=== PATIENT | male | born 1950 | race Caucasian/White ===

== ENCOUNTER 2023-07-05 20:28 | Emergency (ER) | payer MEDICARE, OTHER, SELFPAY ==
[2023-07-05] VITALS (9 sets, daily range): BP systolic 83–119; BP diastolic 57–84
--- NOTE | 2023-07-05 21:00 | ED.GENMED ---
History of Present Illness
General
Chief Complaint: Blood Pressure Problem
Time Seen by Provider: 07/05/23 20:55
Travel History
Have you had any contact with someone who has COVID-19?: No
Do you have any symptoms of coronavirus? Fever > 100 degrees, chills, cough, shortness of breath, sore throat, loss of taste or smell, muscle aches, or headache?: No
History of Present Illness
History of Present Illness:
HPI: Patient presents due to concerns for low blood pressure readings. He states he was at Dr. Kline's office 3 days ago and was found to have blood pressures in the 80s at that time. He states that Dr. Kline did not make any adjustments to his
medications. His med list currently includes Toprol 200 mg daily as well as lisinopril daily. He is also on diuretic. Earlier in the week, he did have a sensation of 'bright vision'. He did have multiple blood pressure readings at home and at
urgent care that were all low.
EXAM:
GENERAL: Well appearing in no distress, mildly hypotensive but has excellent mental status
HEENT: Moist oral mucosa
CARDIOVASCULAR: No murmurs, normal heart rate, irregular rhythm, No chest wall tenderness
PULMONARY: No respiratory distress, breath sounds are clear and equal
ABDOMEN: Soft with no peritoneal signs, no tenderness
NEUROLOGIC: Excellent strength all extremities, no coordination deficits
PSYCHIATRIC: Appropriate mental status, normal insight and judgement
EXTREMITIES: Nontender, no edema, moves all extremities equally
SKIN: No rash, no lesions
TIME OF INITIAL ENCOUNTER: 9 PM
NUMBER AND COMPLEXITY OF PROBLEMS ADDRESSED AT THE ENCOUNTER
� Chronic conditions affecting care: High blood pressure, A-fib, hyperlipidemia, NC, heart failure
� Acute Exacerbation and/or Progression of Chronic Illness: This is an acute problem
� Differential Diagnosis includes: Medication related low blood pressure, ACS very unlikely given the lack of chest pain, heart failure, worsening aortic stenosis
AMOUNT AND/OR COMPLEXITY OF DATA TO BE REVIEWED AND ANALYZED
� I performed an independent evaluation of and my interpretation is:
EKG: A-fib, ventricular rate 78, normal axis, occasional demand V-paced
CT:
X-rays:
Laboratory Studies: Creatinine 2.0�this is acute. CBC unremarkable, mild transaminase elevation.
Other:
� Review of other/old records: The patient was admitted here in 2021 with syncope and at that time a pacemaker was placed, the patient has persistently history of ablations and has had PCI for CAD.
� Clinical information was obtained by an independent historian: Spoke to friend at bedside
� Prescriptions/Medications Considered but not given:
� Further testing considered but not performed:
RISK OF COMPLICATIONS AND/OR MORBIDITY OR MORTALITY OF PATIENT MANAGEMENT
� Social determinants of health affecting care: Lives at home
� Discussion with other providers: I discussed case with Dr. Romeo who recommends decreasing lisinopril
� Escalation of care including admission/observation vs risk of discharge considered: The patient is well-appearing despite low blood pressure. He was given IV fluids�1 L of IV fluids. His BP is now markedly improved. He had
minimal symptoms but I do suspect that the blood pressure was related to BP medication and Lasix use. The patient was instructed to decrease the lisinopril by half and he states he was able to cut these in half at home. He is also to follow-up
with cardiology closely this week for reassessment.
Past History
Past History
ED Past Medical History: Arrthythmia (afib), HTN and NC (07/2017)
ED Past Surgical History: Cardiac
Social History
Tobacco: Smoker
Alcohol: Daily
Drug: None
Personal:
Living: with family
Employment: Employed
Family History
Family History: Hypertension
Phy Exam
Physical Exam
Physical Exam:
See HPI
Course
Orders/Labs/Results
Orders:
Orders
07/05/23 20:35
Electrocardiogram (*1) Urgent
Reason for Study: Fatigue / Weakness
EKG- Treatment ONCE
07/05/23 20:54
Complete Blood Count/With Diff Urgent
Comprehensive Metabolic Panel Urgent
Troponin I Urgent
07/05/23 21:00
0.9% Sodium Chloride 1000 ml [Nss] 1,000 ml IV BOLUS
Abnormal Lab Results
07/05/23
20:54
RBC 4.44 L 10^6/uL
(4.70-6.10)
MCV 99.3 H fL
(80.0-94.0)
MCH 35.6 H pg
(27.0-31.0)
Absolute Monos (auto) 1.2 H 10^3/uL
(0.1-0.6)
Monocytes % 11.7 H %
(1.7-9.3)
Sodium 133 L mmol/L
(135-145)
BUN 36 H mg/dl
(9-20)
Creatinine 2.0 H mg/dL
(0.7-1.3)
Total Bilirubin 1.4 H mg/dl
(0.2-1.3)
AST 112 H U/L
(17-59)
ALT 65 H U/L
(0-50)
07/05/23 20:54
07/05/23 20:54
Vital Signs
Initial and Last Documented VS:
Initial Vital Signs
Temp Pulse Resp BP Pulse Ox
97.9 F 83 18 83/57 99
07/05/23 20:32 07/05/23 20:32 07/05/23 20:32 07/05/23 20:32 07/05/23 20:32
Last Documented Vital Signs
Temp Pulse Resp BP Pulse Ox
97.9 F 76 23 105/76 97
07/05/23 20:32 07/05/23 22:00 07/05/23 22:00 07/05/23 22:00 07/05/23 22:00
*Critical Care Note
Total Time (30-74mins, 75-104mins- exclusive of procedures): Not Applicable
ED Attending Note
-
Portions of this chart may have been created with voice recognition software.� Occasional wrong word or��sound alike� substitutions may have occurred due to the inherent limitations of voice recognition software.
Discharge Plan
Departure
Patient Disposition: Home (Routine Discharge)
Date of Disposition: 07/05/23
Time of Disposition: 22:25
Patient with high blood pressure during this ER visit?: Yes
Discharge Problem:
Acute hypotension, KIRT (acute kidney injury)
Prescriptions:
No Action
nitroglycerin 0.4 MG tablet, sublingual
0.4 mg sublingual [id number] PRN (Reason: chest pain)
apixaban [Eliquis] 5 MG tablet
5 mg PO BID
potassium chloride [Klor-Con M20] 20 MEQ tablet,ER particles/crystals
20 meq PO DAILY
furosemide 20 MG tablet
40 mg PO DAILY
allopurinol 100 MG tablet
100 mg PO DAILY 0RF
atorvastatin 20 MG tablet
20 mg PO DAILY
metoprolol succinate 200 MG tablet extended release 24 hr
200 mg PO DAILY
lisinopril [Prinivil] 40 MG tablet
20 mg PO HS
clopidogrel 75 MG tablet
75 mg PO DAILY
Referrals:
Tahir Justice MD [Family Provider] -
Activity Restrictions/Additional Instructions:
We gave you a bag of fluid. Your blood pressure was low initially with systolic blood pressure around 83. On reassessment after IV fluids were given it is now up to 105/76. I spoke to Dr. Thakkar recommends you cut the lisinopril dosing in
half�you could cut this pill in half. I recommend that you follow-up with Dr. Kline this week. Your kidney function is impaired which should improve with decreasing lisinopril dose and after the IV fluids. Return here if worse.
Interventions
Interventions:
*Risk Screen - Suicide Last Done: 07/05/23 21:36
*General Assessment Last Done: 07/05/23 20:32
*Neglect/Abuse Screening Last Done: 07/05/23 21:36
ED- Fall Risk Assessment Last Done: 07/05/23 21:34
*ED COVID-19 Vaccine History Last Done: 07/05/23 20:32
ED- Cardiac Assessment Last Done: 07/05/23 21:34
ED- Neurological Assessment Last Done: 07/05/23 21:34
ED- Pulmonary Assessment Last Done: 07/05/23 21:34
Discharge Date and Time
Print Language: GREEK
[2023-07-05 21:07] LABS: % Basophils 0.2 % (0-2); % Eosinophils 0.6 % (0-6); % Immature Granulocytes 0.4 % (0-0.5); % Lymphocytes 21.3 % (20.5-51.1); % Monocytes 11.7 % (1.7-9.3); % Neutrophils 65.8 % (42.2-75.2); Absolute Eosinophils 0.1 10^3/uL (0-0.7); Absolute Lymphocytes 2.1 10^3/uL (1.2-3.4); Absolute Monocytes 1.2 10^3/uL (0.1-0.6); Absolute Neutrophils 6.5 10^3/uL (1.4-6.5); Hematocrit 44.1 % (39.0-52.0); Hemoglobin 15.8 g/dL (13.0-18.0); Mean Corp Hgb Conc. 35.8 g/dL (33.0-37.0); Mean Corpuscular Hgb 35.6 pg (27.0-31.0); Mean Corpuscular Volume 99.3 fL (80.0-94.0); Mean Platelet Volume 9.7 fL (7.4-10.4); Nucleated Red Blood Cells % 0 % (-); Platelet Count 152 10^3/uL (130-400); Red Blood Cell Count 4.44 10^6/uL (4.70-6.10); Red Cell Dist. Width 14.1 % (11.5-14.5); White Blood Cell Count 9.9 10^3/uL (4.8-10.8)
[2023-07-05] MEDS: NSS 1000 IV (21:12)
[2023-07-05 21:21] LABS: ALT (SGPT) 65 U/L (0-50); AST (SGOT) 112 U/L (17-59); Albumin 4.5 g/dl (3.5-5.0); Alkaline Phosphatase 76 U/L (38-126); Blood Urea Nitrogen 36 mg/dl (9-20); Calcium 9.8 mg/dl (8.4-10.2); Carbon Dioxide 22 mmol/L (22-30); Chloride 98 mmol/L (98-107); Glucose 98 mg/dl (70-99); Potassium 4.5 mmol/L (3.5-5.1); Sodium 133 mmol/L (135-145); Total Bilirubin 1.4 mg/dl (0.2-1.3); eGFR 35.02
[2023-07-05 21:31] LABS: Troponin I < 0.012 ng/ml
== END 2023-07-05 23:03 | disposition home or self-care (01) ==
LOC: EMR 20:28
PROVIDERS: Emergency Medicine; EMERGENCY PHYSICIAN Emergency Medicine; FAMILY PHYSICIAN Family Medicine
DX: I95.9 Hypotension, unspecified (principal); N17.9 Acute kidney failure, unspecified; I11.0 Hypertensive heart disease with heart failure; I50.9 Heart failure, unspecified; I48.91 Unspecified atrial fibrillation; E78.00 Pure hypercholesterolemia, unspecified; I25.2 Old myocardial infarction; F17.200 Nicotine dependence, unspecified, uncomplicated; Z79.899 Other long term (current) drug therapy; Z82.49 Family history of ischemic heart disease and other diseases of the circulatory system
CPT/HCPCS: 99283; 96360; 80053; 84484; 85025; 93005

== ENCOUNTER → 2023-07-30 14:58 | Outpatient (REF) | payer MEDICARE, OTHER, SELFPAY | LOC: HWRCS 14:58 | PROVIDERS: ATTENDING PHYSICIAN Internal Medicine Cardiovascular Disease; FAMILY PHYSICIAN Family Medicine | DX: I35.0 Nonrheumatic aortic (valve) stenosis (principal) | CPT/HCPCS: 93306 ==

== ENCOUNTER → 2024-07-10 14:56 | Outpatient (REF) | payer MEDICARE, OTHER, SELFPAY | LOC: HWRCS 14:56 | PROVIDERS: ATTENDING PHYSICIAN Internal Medicine Cardiovascular Disease | DX: I35.0 Nonrheumatic aortic (valve) stenosis (principal) | CPT/HCPCS: 93306 ==

== ENCOUNTER 2024-07-29 11:10 | Day surgery (SDC) | payer MEDICARE, OTHER, SELFPAY ==
[2024-07-29] VITALS (13 sets, daily range): BP systolic 120–155; BP diastolic 79–122; BMI 31.5
[2024-07-29] MEDS: NSS 316 ML IV (12:34)
--- NOTE | 2024-07-29 15:34 | CONSULT.STRU ---
Consultation
-
Date/Time Consultation Requested: 07/29/2024
Date/Time Consultation Performed: 07/29/2024
Requesting Provider: Tahir Lopez DO
Performing Provider: YOLANDA Ceja
Reason for Consultation: TAVR/
Patient History
Physicians
Family Physician: Tahir Justice MD
Outpatient Information Security Architect: Isiah Kline MD
Primary Information Security Architect: Isiah Kline MD
History of Present Illness
Mr. Byrne is a very pleasant 74 yom with a past medical history significant for HFpEF, CAD, permanent afib, PPM, mixed hyperlipidemia, and AK. His most recent echocardiogram from 06/23/2024 is notable for an EF 55-60%, AV P/M 59/42, SHARON 0.75, mild
AI, pk sheryl 4.01, MAC with mild to moderate MR, Moderate TR, PAP 40. His cardiac catheterization from 07/30/2024 demonstrated Right dominant circulation with a mild myocardial bridge in the mid LAD and a patent stent in the proximal, mid and distal RCA
that is covering a densely calcified lesion with evidence of residual ulceration in its distal margin, though covered. Severely elevated filling pressures (LVEDP = 28 mmHg, PCWP = 31 mmHg at 106.2 kg).Severe aortic valve stenosis (mean gradient =
44.4 mmHg, SHARON = 0.63 cm2). From a symptomatology standpoint patient describes LE edema and [place] that has become progressively worse over the last two weeks. Discussed the pathophysiology and treatment options of aortic stenosis including SAVR and
TAVR. Explained the evaluation process comprising of lab work, CT scan, CT surgical consult, dental clearance, and a heart team discussion. TAVR booklet, contact information, prescriptions, and appointments given to patient. Allowed for and answered
questions at bedside.
Past Medical History
Past Medical History: Atrial Fib (permanent), CAD (Stents to RCA), CHF (HFpEF), HTN, Hypercholesterolemia, AK (IMI) and Valvular Disease
Past Surgical History
Past Surgical History: PCI/Stent and Other (DCCV, Ablation, PPM)
Family History
Mother: at Age and Cause of (heart disease)
Father: at Age
Social History
Alcohol: Occasional
Drug: None
Tobacco: Former Smoker
Employment: Employed
Allergies
Allergy/AdvReac Type Severity Reaction Status Date / Time
No Known Allergies Allergy Verified 07/29/24 11:38
Home Medications
�Medication �Instructions �Recorded �Confirmed �Type
apixaban 5 mg tablet (Eliquis) 5 mg PO BID AFIB, persistent 08/20/17 07/29/24 History
furosemide 20 mg tablet 40 mg PO DAILY Fluid 08/20/17 07/29/24 History
retention/Swelling
nitroglycerin 0.4 mg sublingual 0.4 mg sublingual [id number] PRN 08/20/17 07/29/24 History
tablet chest pain
potassium chloride 20 mEq 20 meq PO DAILY Supplement 08/20/17 07/29/24 History
tablet,extended
release(part/cryst) (Klor-Con M)
allopurinol 100 mg tablet 100 mg PO DAILY 08/21/17 07/29/24 Rx
atorvastatin 20 mg tablet 20 mg PO DAILY High cholesterol 09/09/17 07/29/24 History
lisinopril 40 mg tablet (Prinivil) 20 mg PO HS HTN 02/03/21 07/29/24 History
metoprolol succinate 200 mg 200 mg PO DAILY Arrhythmia 02/03/21 07/29/24 History
tablet,extended release 24 hr
L87-[id number] acid-B6-soy zhang ext 3,000 mcg DAILY 07/29/24 07/29/24 History
milk thistle 150 mg capsule 25 DAILY 07/29/24 History
STS%
STS %: 2.28
Review of Systems
-
History Source: Patient
General: Reports Fatigue
HEENT: Reports No Symptoms
Respiratory: Reports SOB and WASHINGTON
Cardiac: Reports No Symptoms
Abdomen/GI: Reports No Symptoms
: Reports No Symptoms
Musculoskeletal: Reports No Symptoms
Skin: Reports No Symptoms
Neurological: Reports No Symptoms
Vascular: Reports No Symptoms
Physical Exam
Vital Signs
Temp 98.0 F 07/29/24 11:57
Temp route: Oral 07/29/24 11:57
Pulse 69 07/29/24 11:57
Resp Rate 20 07/29/24 11:57
Blood pressure 131/88 07/29/24 11:57
Blood pressure extremity used: Right upper arm 07/29/24 11:57
Position: Sitting 07/29/24 11:57
SaO2 99 07/29/24 11:57
Oxygen Mode of Delivery Room air 07/29/24 11:57
Can the patient verbally communicate their pain? Yes 07/29/24 11:57
Actual Weight 105.2 kg 07/29/24 11:37
Body Mass Index (BMI) 31.5 07/29/24 11:37
Diagnostic Studies
07/10/2024
CONCLUSIONS
Normal left ventricular function.
Estimated left ventricular ejection fraction is 55-60%.
Severe aortic stenosis.
Peak aortic gradient peak aortic gradient of 69 mmHg and a mean aortic gradient
of 42 mmHg
Mild aortic regurgitation.
Moderate tricuspid regurgitation.
Mild to moderate mitral regurgitation.
Compared to the previous report from 07/30/23 degree of aortic stenosis has
increased from moderate to severe. Previously the peak gradient was 49 mmHg
and mean gradient 30 mmHg
07/29/2024
CONCLUSIONS:
1. Right dominant circulation with a mild myocardial bridge in the mid LAD and a patent stent in the proximal, mid and distal RCA that is covering a densely calcified lesion with evidence of residual ulceration in its distal margin, though covered.
2. Severely elevated filling pressures (LVEDP = 28 mmHg, PCWP = 31 mmHg at 106.2 kg).
3. Severe aortic valve stenosis (mean gradient = 44.4 mmHg, SHARON = 0.63 cm�).
RECOMMENDATIONS:
1. Expectant management after cardiac catheterization via right radial/antecubital approach.
2. Limited weight bearing on the right wrist for one week.
3. Continue TAVR evaluation.
4. Increase furosemide to 80 mg daily with BMP in 1 week to monitor renal function and potassium levels.
5. Restart apixaban tomorrow morning.
6. Increase atorvastatin to 40 mg daily. Goal LDL <55.
7. Continue OMT/GDMT as hemodynamics will permit.
Procedure Type:�Isolated AVR
Perioperative Outcome Estimate %
Operative Mortality 2.28%
Morbidity & Mortality 13.4%
Stroke 1.81%
Renal Failure 1.95%
Reoperation 3.97%
Prolonged Ventilation 5.64%
Deep Sternal Wound Infection 0.087%
Long Hospital Stay (>14 days) 3.8%
Short Hospital Stay (<6 days)* 40.7%
Exam
General: Well Developed, Well Nourished and No Apparent Distress
HEENT: Normocephalic and PERRLA
Neck: Trachea Midline
Respiratory: Clear
Cardiac: Irregular Rhythm and Murmur (III/ USHA)
GI: Soft, Non Tender and Non Distended
Rectal: Deferred by Provider
Skin: Warm and Dry
Neuro: Awake, Alert, Oriented and AO x 3
Extremities: Lower Level Edema
Psych: Calm
Assessment / Plan
-
Aortic Stenosis
Continue TAVR evaluation
Trend creatinine (Rx given)
TAVR CT scan (08/10)
CT surgical consult (MPT 08/18)
KCCQ12 and frailty testing at consult
Will hold Eliquis x 48 hours for TAVR and initiate aspirin while Eliquis held
Dental clearance
Heart team discussion
Data Reviewed
-
EKG: Tracing Personally Visualized and interpreted (a-fib)
Extractions Technologist: Report Reviewed by me and Discussed with Physician
Echo: Report Reviewed by me and Discussed with Physician
Labs: Labs Reviewed by me
Old Records: Reviewed
Total Time Spent with Patient (in minutes): 45
--- NOTE | 2024-07-29 15:45 | ITS.CL.CATH ---
Flow Coordinator - Catheterization
Cardiac Catheterization
Procedure Report:
CARDIAC CATHETERIZATION REPORT
Date of Procedure: 07/29/2024
Referring: YOLANDA Carrington
Indication: Severe aortic valve stenosis, heart failure with preserved ejection fraction.
PROCEDURE:
1. Right heart catheterization.
2. Coronary angiography.
3. Left heart catheterization.
4. Aortic valve interrogation.
A total of 8 minutes of procedural/moderate sedation was utilized. An independent medical claims specialist was present to assist with and help manage the patient's level of consciousness and physiologic status.
ACCESS:
1. 6 [place] right radial artery using a modified Seldinger technique.
2. 5 [place] right antecubital vein using a previously placed IV.
CATHETERS:
1. 5 [place] balloon wedge.
2. 5 [place] JL 3.5.
3. 5 [place] JR4.
HEMODYNAMIC DATA
Weight (kg): 106.2
AO (s/d/x, mmHg): 120/86/100
LV (s/x, mmHg): 176/28
PCWP (a/v/x, mmHg): 37/47/31
PA (s/d/x, mmHg): 59/34/42
RV (s/x, mmHg): 59/20
RA (a/v/x, mmHg): 21/21/20
SVC SvO2 (%): 68.7
IVC SvO2 (%): Not obtained.
RA SvO2 (%): Not obtained.
RV SvO2 (%): Not obtained.
PA SvO2 (%): 63.8
SaO2 (%): 92.8
Hbg (g/dL): 14.4
ROZINA
CO (L/min): 4.60
CI (L/min/m2): 2.02
Thermodilution
CO (L/min): Not performed.
CI (L/min/m2): Not performed.
TPG (mmHg): 11
PVR (Lyons Units): 2.39
SVR (dynes*seconds*cm^-5): 1391
AVO2 Diff (Volume %): 5.68
AV gradient (x, mmHg): 44.4
AV area (cm2): 0.63
MV gradient (x, mmHg): Not obtained.
MV area (cm2): Not obtained.
LEFT VENTRICULOGRAPHY: Not performed.
AORTOGRAPHY: Not performed.
CORONARY ANGIOGRAPHY
Dominance: Right.
Left Main: Large size, trifurcating vessel. There is no coronary artery disease.
LAD: Large size vessel giving rise to 2 diagonals. There is no coronary artery disease. There is a mild myocardial bridge in the mid LAD.
Ramus: Medium size vessel. There is no coronary artery disease.
Circumflex: Large size, nondominant vessel giving rise to 1 obtuse marginals. The obtuse marginal subsequently divides into a larger upper branch and a smaller lower branch. There is no coronary artery disease.
RCA: Large size, dominant vessel with a large posterolateral arcade which supplies the majority of the inferior and inferolateral wall. There is a patent stent in the proximal, mid and distal RCA that is covering a densely calcified lesion with
evidence of residual ulceration in its distal margin.
INTERVENTIONS
None.
Closure Device: Vascular band for the right radial artery, manual pressure for the right antecubital vein.
Radiation dose (mGy): 517
DAP (cm2.Gy): 26.6
Fluoroscopy time (minutes): 2.6
CONCLUSIONS:
1. Right dominant circulation with a mild myocardial bridge in the mid LAD and a patent stent in the proximal, mid and distal RCA that is covering a densely calcified lesion with evidence of residual ulceration in its distal margin, though covered.
2. Severely elevated filling pressures (LVEDP = 28 mmHg, PCWP = 31 mmHg at 106.2 kg).
3. Severe aortic valve stenosis (mean gradient = 44.4 mmHg, SHARON = 0.63 cm�).
RECOMMENDATIONS:
1. Expectant management after cardiac catheterization via right radial/antecubital approach.
2. Limited weight bearing on the right wrist for one week.
3. Continue TAVR evaluation.
4. Increase furosemide to 80 mg daily with BMP in 1 week to monitor renal function and potassium levels.
5. Restart apixaban tomorrow morning.
6. Increase atorvastatin to 40 mg daily. Goal LDL <55.
7. Continue OMT/GDMT as hemodynamics will permit.
Copy to: Tahir Justice M.D., YOLANDA Carrington, Isiah Kline M.D.
Tahir Lopez DO, FACC, FACP
== END 2024-07-29 19:04 | disposition home or self-care (01) ==
LOC: CATH 11:10
PROVIDERS: ATTENDING PHYSICIAN Internal Medicine Cardiovascular Disease; FAMILY PHYSICIAN Family Medicine; OTHER PHYSICIAN Internal Medicine Cardiovascular Disease
DX: I48.21 Permanent atrial fibrillation (principal); Z95.5 Presence of coronary angioplasty implant and graft; Q24.5 Malformation of coronary vessels; I35.0 Nonrheumatic aortic (valve) stenosis; I11.0 Hypertensive heart disease with heart failure; I50.32 Chronic diastolic (congestive) heart failure; E78.2 Mixed hyperlipidemia; I25.2 Old myocardial infarction; Z79.01 Long term (current) use of anticoagulants; Z79.899 Other long term (current) drug therapy
CPT/HCPCS: 93460; C1894; Q9967

== ENCOUNTER → 2024-08-10 09:22 | Outpatient (REF) | payer MEDICARE, OTHER, SELFPAY | LOC: RAD 09:22 | PROVIDERS: ATTENDING PHYSICIAN Nurse Practitioner Acute Care | DX: I35.0 Nonrheumatic aortic (valve) stenosis (principal) | CPT/HCPCS: 74174; 75572; Q9967 ==

== ENCOUNTER 2024-09-17 05:36 | Inpatient (IN) | payer MEDICARE, OTHER, SELFPAY ==
[2024-09-09 12:17] VITALS: BMI 32.5
[2024-09-09 12:40] LABS: % Basophils 0.2 % (0-2); % Eosinophils 1.1 % (0-6); % Immature Granulocytes 0.6 % (0-0.5); % Lymphocytes 22.7 % (20.5-51.1); % Monocytes 9.6 % (1.7-9.3); % Neutrophils 65.8 % (42.2-75.2); Absolute Eosinophils 0.1 10^3/uL (0-0.7); Absolute Immature Granulocytes 0.1 10^3/uL (0-0.05); Absolute Monocytes 0.9 10^3/uL (0.1-0.6); Absolute Neutrophils 5.9 10^3/uL (1.4-6.5); Hematocrit 47.5 % (39.0-52.0); Hemoglobin 16.4 g/dL (13.0-18.0); Mean Corp Hgb Conc. 34.5 g/dL (33.0-37.0); Mean Corpuscular Hgb 32.3 pg (27.0-31.0); Mean Corpuscular Volume 93.7 fL (80.0-94.0); Mean Platelet Volume 10.3 fL (7.4-10.4); Nucleated Red Blood Cells % 0 % (-); Platelet Count 157 10^3/uL (130-400); Red Blood Cell Count 5.07 10^6/uL (4.70-6.10); Red Cell Dist. Width 15.2 % (11.5-14.5)
[2024-09-09 12:45] LABS: INR 1.23; PT 16.1 Sec (11.4-14.6)
[2024-09-09 12:46] LABS: APTT 32.1 Sec (23.4-35.0)
[2024-09-09 12:47] LABS: ALT (SGPT) 46 U/L (0-50); AST (SGOT) 64 U/L (17-59); Albumin 4.5 g/dl (3.5-5.0); Alkaline Phosphatase 88 U/L (38-126); Blood Urea Nitrogen 20 mg/dl (9-20); Calcium 9.7 mg/dl (8.4-10.2); Carbon Dioxide 25 mmol/L (22-30); Chloride 106 mmol/L (98-107); Direct Bilirubin 0.3 mg/dl (0.0-0.4); Estimated Creatinine Clearance 99 ml/min; Glucose 127 mg/dl (70-99); Potassium 4.5 mmol/L (3.5-5.1); Sodium 140 mmol/L (135-145); Total Bilirubin 1.3 mg/dl (0.2-1.3); Total Protein 8.7 g/dl (6.3-8.2); eGFR > 60.00
[2024-09-09 12:51] LABS: NT-proBNP 1940 pg/ml
[2024-09-09 12:53] LABS: Urine Albumin 1+ (Neg - Trace); Urine Bilirubin Negative (Negative); Urine Character Clear (Clear); Urine Color Yellow; Urine Glucose Negative (Negative); Urine Ketone Negative (Negative); Urine Leukocyte Negative (Negative); Urine Nitrite Negative (Negative); Urine Occult Blood Negative (Negative); Urine Specific Gravity 1.015 (<1.030); Urine Urobilinogen Negative (Neg - 1+)
[2024-09-09 13:18] LABS: Urine Mucus Few; Urine Red Blood Cell 0-2 /HPF (0-2); Urine Squamous Cell 0-2 /LPF (Few); Urine White Cell 0-2 /HPF (0-5)
--- NOTE | 2024-09-09 13:44 | CM ---
CM following for DC planning needs.
Met w/ patient during PATs for planned TAVR, 09/17.
Patient resides alone in a private, 2 STH w/ 3 [address]ASH[address]. Functionally, patient is indep. BROADCAST JOURNALIST with ADLs, mobility without the use of any assisted device. 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
Reviewed pre and post op routines.
Soap, shower instructions and TAVR booklet.
Reviewed post op restrictions to include lifting, driving restrictions.
Reviewed post op MD appointments, Cardiac Rehab and visit from CT Transitional Care RN.
Plan for TAVR 09/17
Anticipated DC plan is for home w/ CT Transitional Care RN
CM to follow.
[2024-09-09 14:04] LABS: Glycohemoglobin (HgbA1c) 5.8 % (4.0-5.6)
[2024-09-17] VITALS (20 sets, daily range): BP systolic 89–139; BP diastolic 64–97; BMI 31.2
--- NOTE | 2024-09-17 06:13 | PTCARENOTE ---
Rec'd as direct admit for TAVR. Pt AAO*3, VSS, and Afib on TELE monitor. Admission, med rec, and assessment complete. Pt NPO since midnight with ASA 81mg taken at 5AM. Surgical prep complete with chest and groin clipped. See flowchart for full
assessment. Plan of care ongoing with pt resting and call camilo in reach.
--- NOTE | 2024-09-17 06:15 | W.CVOR.SURPR ---
CVOR Surgeon Immed Pre Op
-
I have examined this patient prior to performance of the scheduled procedure.
The patient's condition is unchanged from the time of the dictated/written History and
Physical and the patient is able to undergo the scheduled procedure.
[2024-09-17] MEDS: BACTROBAN 2% OINTMENT 1 APPLIC NASAL (06:50)
[2024-09-17 08:21] LABS: ACT-LR - POC 303 Seconds (116-155)
--- NOTE | 2024-09-17 08:47 | W.IMMPOSTOP ---
Surgical Immed Post Op Note
-
[id number]
STRUCTURAL HEART PROCEDURE NOTE: TAVR
Preoperative Dx:
Severe aortic stenosis (59/42, SHARON 0.75, mild AI)
Rjco-rt-ohsyzrwo MR
Moderate TR
Hx of HFpEF
AF/A-flutter w/ Hx of remote ablation
Prior iSTEMI (2018) w/ 2 stents to RCA
Idiopathic gout
HLD
Questionable neuropathy
Urinary frequency
Obesity (BMI 31.2)
Postoperative Dx:
Same
Byutt-ln-oltyivk, combined systolic/diastolic CHF w/ elevated LVEDP (40mmHg)
Procedures:
1) L CFV access w/ U/S and fluoroscopic guidance, seldinger technique, long 6Fr sheath placement
2) L PREFLIGHT INSPECTOR access w/ tactile, U/S, and fluoroscopic guidance, seldinger technique, long 6Fr sheath placement
3) Placement of temporary pacing wire w/ fluoroscopic guidance, threshold testing
4) Placement of pigtail catheter in RCC w/ limited aortography & confirmation of co-planar valve deployment angles
5) R PREFLIGHT INSPECTOR access w/ tactile, U/S, and fluoroscopic guidance, seldinger technique, 8Fr dilator placement
6) Limited R PREFLIGHT INSPECTOR angiography w/ subsequent perclose suture placement x 2; 8Fr sheath placement
7) Placement of Bueno E-sheath via R PREFLIGHT INSPECTOR (systemic heparinization)
8) Wire purchase across stenotic AV (AL-1, soft-tip straight, LVEDP assessment, extra-stiff wire)
9) R TF TAVR w/ placement of 26mm (+2) BETHANY 3 RESILIA valve
10) Completion aortography
11) Completion TTE (mean gradient 6mmHg, no AI/PVL)
12) Removal of valve delivery system/Bueno E-sheath w/ R PREFLIGHT INSPECTOR mgmt w/ perclose sutures x 2; manual pressure
13) Completion R ileofemoral angiography
14) Removal of temporary pacing wire
15) Limited L PREFLIGHT INSPECTOR angiography
16) Removal of L PREFLIGHT INSPECTOR 6Fr sheath w/ mgmt w/ 6Fr angioseal; manual pressure (protamine)
17) Removal of L CFV 6Fr sheath; manual pressure
Desk Officer:
Dr. Miguelangel Leal
Cardiac Surgeon:
Dr. Mono Guadalupe
Anesthesia:
MAC to GA w/ LMA; lidocaine to B/L groins
Implants:
[employer], BETHANY 3, 26mm RESILIA; SN [id number]
Perclose x 2 to R PREFLIGHT INSPECTOR
6Fr angioseal x 1 to L PREFLIGHT INSPECTOR
Cath Data:
Start: 751; Deploy: 824; End: 836
FT: 9.4min, mGy: 545.68, DAP: 55.0943, Contrast: 58mL
Post-TTE: mean gradient 6mmHg, no AI/PVL
Complications:
New BBB (pt w/ preop PPM)
Condition:
Stable/guarded to recovery
--- NOTE | 2024-09-17 09:35 | ITS.CL.PN ---
Emergency Room Clinician - Procedure Note
Procedure
Procedure Note:
TRANSCATHETER AORTIC VALVE REPLACEMENT REPORT
Date of Procedure: 09/17/2024
Referring: Dr. Lamont Kline MD
Indication: severe symptomatic aortic valve stenosis
Operators: Miguelangel Leal MD, PhD (interventional cardiology); Dr. Mono Guadalupe MD (CT surgery)
Anesthesia: conscious sedation provided by the anesthesia staff
PROCEDURE: transfemoral, transcatheter aortic valve replacement with an Bueno BETHANY 3 Ultra Resilia 26 mm valve
ACCESS:
1. 6F left femoral vein (closure: manual hemostasis) - Ultrasound was utilized for vascular access. The vessel was visualized under ultrasound and noted to be patent. An image of the vessel was stored permanently in the patient's medical record.
Under direct ultrasound guidance, vascular access was obtained using a modified Seldinger technique and a 6 Bel[place]an sheath was placed.
2. 6F left common femoral artery (closure: Angioseal) - Ultrasound was utilized for vascular access. The vessel was visualized under ultrasound and noted to be patent. An image of the vessel was stored permanently in the patient's medical record.
Under direct ultrasound guidance, vascular access was obtained using a modified Seldinger technique and a 6 Belizean sheath was placed.
3. 14 F right common femoral artery (closure: Perclose x2) - Ultrasound was utilized for vascular access. The vessel was visualized under ultrasound and noted to be patent. An image of the vessel was stored permanently in the patient's medical
record. Under direct ultrasound guidance, vascular access was obtained using a modified Seldinger technique and a 8 Belizean sheath was placed.
HEMODYNAMIC DATA
LVEDP 40 mmHg
PROCEDURE NARRATIVE:
The patient was prepped and draped in standard sterile fashion. Conscious sedation was provided by the anesthesia staff. 6F left femoral vein and left common femoral artery access was obtained with ultrasound guidance using micropuncture technique
with verification of appropriate arteriotomy location via hand injection angiography. A temporary venous pacing wire was advanced via the left femoral vein to the right ventricle under fluoroscopic guidance with appropriate capture verified. A 5F
pigtail catheter was advanced via the left common femoral artery and seated in the right coronary cusp. Angiography was performed to verify the co-planar angle.
8F right common femoral artery access was obtained with ultrasound guidance using micropuncture technique with verification of appropriate arteriotomy location via hand injection angiography. The arteriotomy was preclosed with two Perclose sutures
followed by replacement of the 8F sheath. Using an AL1 catheter, an Amplatz Extrastiff wire was placed in the descending thoracic aorta. The 8F sheath was removed and the 14 F Bueno E-sheath was inserted over the Extrastiff wire and into the
descending aorta. Heparin 8000 units was given. The AL1 catheter was re-advanced through the E-sheath to the level of the ascending aorta. The Extrastiff wire was exchanged for a soft tipped straight wire which was used to cross the aortic valve and
deposit the AL1 in the LV apex. A J-wire was used to exchange the AL1 for a pigtail catheter in the LV and LVEDP was measured. An Amplatz Extrastiff wire with curved proximal end was advanced through the pigtail catheter and seated in the LV apex.
ACT was checked and confirmed to be >300 seconds.
The valve was brought to the table with orientation and deployment contrast volume verified. The valve was advanced over the Extrastiff wire and into the descending aorta. The balloon was withdrawn, and the valve was mounted on the balloon. The
valve was advanced over the aortic arch and into the aortic valve annulus. The pusher device was withdrawn. Low volume aortography confirmed valve positioning. The valve was deployed during rapid ventricular pacing. The balloon was walked back to
the descending aorta while leaving the wire in place. The patient was resuscitated by anesthesia with recovery of adequate blood pressure. Telemetry demonstrating atrial fibrillation with new left bundle branch block. Aortography demonstrated good
valve positioning, adequate coronary filling, and no aortic valve insufficiency. Echocardiography confirmed no aortic insufficiency. Mean valve gradient was 5 mmHg. The valve deployment system was removed.
The Bueno E sheath was removed, and hemostasis obtained with the two Perclose sutures. Protamine 30 mg was given. Aortoiliac angiography demonstrated no evidence of iliofemoral dissection/perforation and good runoff below the common femoral artery
bilaterally. The pacemaker and the pigtail catheter were removed. The left femoral artery sheath was removed using a 6F Angioseal. The left femoral venous sheath was removed with manual pressure.
RADIATION: dose 545 mGy; DAP 55 Gy*cm2; fluoroscopy time 9.4 min
CONCLUSIONS
1. successful placement of an Bueno BETHANY 3 Ultra Resilia 26 mm transcatheter aortic valve via right transfemoral approach with no acute complications
2. acute on chronic systolic heart failure with elevated filling pressures (LVEDP = 40)
Copy to: Dr. Brenden Kline MD (medicaid plan compliance director); Dr. Jarrod Minaya MD (PCP)
Signed: Miguelangel Leal MD, PhD
--- NOTE | 2024-09-17 09:59 | CM ---
Addendum entered by TONE Gutiérrez 09/17/24 12:12:
Met w/ patient at bedside. Pt. feels well post TAVR.
Will follow.
Original Note:
CM following for DC planning needs.
Patient in OR today for TAVR procedure.
Pt. resides alone in a private [facility] with 3 [facility]. Functionally, patient is indep. w/ ADLs, mobility without the use of any assisted device.
Antic. DC plan is for home w/ CT Transitional Care RN.
CM to follow.
[2024-09-17] MEDS: TYLENOL 650 MG PO (10:07)
--- NOTE | 2024-09-17 10:47 | PTCARENOTE ---
Received pt post TAVR. VSS. GCS 15, NIH-0. B/L groin sites clean, dry and intact. Pt continues to c/o left lower back pain. Post TAVR orders noted. Will monitor.
[2024-09-17] MEDS: ANCEF 10 IV ×2 (11:29)
[2024-09-17] MEDS: ANCEF 5 IV (14:33)
[2024-09-17] MEDS: LASIX 20 MG IV (16:30)
[2024-09-17] MEDS: ANESTHETIC LOZENGE 1 LOZENGE PO (21:00)
[2024-09-17] MEDS: LIPITOR 40 MG PO (21:01)
[2024-09-17] MEDS: ZESTRIL 20 MG PO (21:01)
--- NOTE | 2024-09-18 00:52 | PTCARENOTE ---
assumed care of patient at the change of shift. AAOx3. independent in the room. neuro intact. Afib on tele with [id number]. bp stable. b/l groin sites intact. + pulses. patient denies any sob/cp. complains of sore throat- Lozenge ordered and
given, see mar. educated patient to inform RN with any changes overnight. call camilo within reach. makes needs known.
[2024-09-18 03:18] VITALS: BP 120/85
[2024-09-18] MEDS: TYLENOL 650 MG PO (03:28)
[2024-09-18] MEDS: ANESTHETIC LOZENGE 1 LOZENGE PO ×2 (03:28→09:07)
[2024-09-18 03:49] LABS: Hematocrit 42.7 % (39.0-52.0); Hemoglobin 14.7 g/dL (13.0-18.0); Mean Corp Hgb Conc. 34.4 g/dL (33.0-37.0); Mean Corpuscular Hgb 32.9 pg (27.0-31.0); Mean Corpuscular Volume 95.5 fL (80.0-94.0); Mean Platelet Volume 10.5 fL (7.4-10.4); Platelet Count 98 10^3/uL (130-400); Red Blood Cell Count 4.47 10^6/uL (4.70-6.10); Red Cell Dist. Width 15.3 % (11.5-14.5); White Blood Cell Count 7.5 10^3/uL (4.8-10.8)
[2024-09-18 04:19] LABS: Blood Urea Nitrogen 15 mg/dl (9-20); Calcium 9.5 mg/dl (8.4-10.2); Carbon Dioxide 27 mmol/L (22-30); Chloride 103 mmol/L (98-107); Estimated Creatinine Clearance 116 ml/min; Glucose 118 mg/dl (70-99); Potassium 4.7 mmol/L (3.5-5.1); Sodium 137 mmol/L (135-145); eGFR > 60.00
[2024-09-18 07:56] VITALS: BP 102/83
--- NOTE | 2024-09-18 08:55 | W.PN.CT ---
Today's Communication / Plan
-
-pod #1
-no issues overnight
-LVEDP 40-diuresed with 20 iv Lasix 09/17
-in a-fib 80s-90s with occasional paced beats.
-new LBBB postop- now resolved (has MDT VVI pacer)
-Echo today
-current meds (Eliquis, Toprol XL 200 qd, Zestril, Lasix 40 bid, Lipitor)
-encourage IS, OOB, ambulate
Assessment / Plan
-
- Severe symptomatic - s/p R TF TAVR w/ placement of 26mm (+2) BETHANY 3 RESILIA valve on 09/17/24, pod #1
- Post-TTE: mean gradient 6mmHg, no AI/PVL
- New LBBB (pt w/ preop PPM)
- Lfptx-qa-uimwccn, combined systolic/diastolic CHF w/ elevated LVEDP (40mmHg)- diuresed with 20 iv Lasix
- Qrhf-hg-sqrbskkw MR
- Moderate TR
- Hx of HFpEF
- Permanent AF/A-flutter w/ Hx of remote ablation
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
- Prior iSTEMI (2018) w/ 2 stents to RCA
- Idiopathic gout
- HLD
- Questionable neuropathy
- Urinary frequency
- Class 1 Obesity (BMI 31.2)
Discussed patient care with: Nursing and Care Team
Subjective
-
Date of Service: September 17, 2024
Objective Data
-
Lab Results
09/09/24 12:13
09/09/24 12:13
PT 16.1 Sec (11.4-14.6) H 09/09/24 12:13
INR 1.23 09/09/24 12:13
APTT 32.1 Sec (23.4-35.0) 09/09/24 12:13
Vital Signs
Vital Signs
Temp Pulse Resp BP Pulse Ox
98.9 F 95 18 132/83 96
09/17/24 22:35 09/17/24 23:00 09/17/24 22:35 09/17/24 22:34 09/17/24 22:35
CT Intake/Output/Weight
09/17/24 09/17/24 09/18/24
06:59 18:59 06:59
Intake Total 1000 / 1000
Balance 1000 / 1000
SaO2: 96
Physical Exam
-
General: Awake and AOx3
Cardiovascular: Irregular rate & rhythm, No Murmurs and No Rub
Respiratory: Clear and Decreased Breath Sounds
Incision: Other (groins are cdi, soft, nontender, no hematoma b/l)
Extremities: No Edema
Abdomen: soft, nontener, nondistended, + bowel sounds
Data Reviewed
-
Lab Results: Results Reviewed
Medications: Active Meds Reviewed
Chest X-Ray: Report Reviewed and Image Reviewed
ECG: Report Reviewed and Image Reviewed
[2024-09-18] MEDS: TOPROL XL 200 MG PO (09:05)
[2024-09-18] MEDS: LIPITOR 40 MG PO (09:06)
[2024-09-18] MEDS: LASIX 40 MG PO (09:06)
[2024-09-18] MEDS: KCL 20 MEQ PO (09:07)
[2024-09-18] MEDS: ZYLOPRIM 300 MG PO (09:07)
--- NOTE | 2024-09-18 09:11 | W.DCSUMMARY ---
Discharge Summary
Discharge Data
Date of Admission: 09/17/24
Date of Discharge: 09/18/24
-
Pending Results: No
Hospital Course
Primary care physician: Tahir Justice
Outpatient heater tender: Isiah Tapia
Inpatient consultants:[facility] Cardiology
Procedures:
1. transfemoral TAVR
Primary Diagnosis:
1. Severe aortic stenosis (59/42, SHARON 0.75, mild AI)
Secondary Diagnoses:
1. Alyzk-ne-aapfzon, combined systolic/diastolic CHF w/ elevated LVEDP (40mmHg)
2. AF/A-flutter w/ Hx of remote ablation and MDT PPM
3. CAD, Prior iSTEMI (2018) w/ 2 stents to RCA
4. Idiopathic gout
5. HLD
6. Questionable neuropathy
7. Class I Obesity (BMI 31.2)
HPI: 74-year-old male delivered on 09/17/2024 for TAVR due to severe aortic stenosis with exertional dyspnea and fatigue.
Hospital course: Patient underwent successful deployment of a right transfemoral TAVR #26 mm Power [address] Mono Guadalupe and Laureano Leal. For complete details, please see operative note. Postprocedure, the patient was diuresed with 20 mg of
IV Lasix due to LVEDP of 40. ECG noted atrial fibrillation with new left bundle branch block. Bilateral groin sites remained intact without hematoma or bleeding. Postoperative day #1, the chest x-ray was without significant findings. ECG
confirmed A-fib with ventricular pacing. TTE reported an EF of 55 to 60% with mild�moderate MR and moderate TR. AV gradients 13/7 mmHg with no AI. Hemoglobin 14.7, creatinine 0.7, and platelet count reduced as 98 (prior 157). Patient will continue
on his Eliquis for history of A-fib. Home Lasix of 40 mg twice daily will continue. Patient ambulating independently in halls and deemed stable for discharge home today. Patient will be seen by transitional RN and scheduled for repeat CBC to assess
platelet count in 1 week.
Home medication changes:
See below
Discharge Plan
-
Patient Disposition: Home (Routine Discharge)
Discharge Diagnosis/Procedures: TF TAVR #26mm Power 3
Condition: Good
Diet: Low Fat, Low Cholesterol and 2 Gram Sodium
Activity: As tolerated
Driving Restrictions: No driving for 1 week
Bathing Restrictions: OK to Shower
Blood Work: CBC in 1 week (plt 98k)
Others Tests: Your 30-day echocardiogram:10/19/2024 @ 9:20am at [facility]
Other Services: Cardiac Rehab
Wound Care: No lotions, powders, or creams to puncture sites
Specialty Instructions: Weigh Daily- Call MD for wt gain/loss 3 lbs overnight/5 lbs in 1 week
Referrals:
CT Transitional Care Nurse [Outside]
Referral Note: The Cardiothoracic Transitional Care Nurse will call you to set up a visit in 1-2 days.
[facility]. Cardiac Rehab [Outside] - 10/15/24 11:30 am
Referral Note: Cardiac Rehab Orientation appointment is on 10/15/24 (Th.) at 11:30 am
The Cardiac Rehab gym is located on the first floor of the [facility].
Jolene Eddy CRNP [Specified Professional Personl, Cardiology] - 10/21/24 11:20 am
UNKNOWN - PT NOT,INTERVIEWE [Unknown Provider]
Prescriptions:
Continued
nitroglycerin 0.4 MG tablet, sublingual
0.4 mg sublingual [id number] PRN (Reason: chest pain)
Eliquis 5 MG tablet
5 mg PO BID
potassium chloride [Klor-Con M20] 20 MEQ tablet,ER particles/crystals
20 meq PO DAILY
metoprolol succinate 200 MG tablet extended release 24 hr
200 mg PO DAILY
lisinopril [Prinivil] 40 MG tablet
20 mg PO HS
atorvastatin 40 mg tablet
40 mg PO BID
Nitric Oxide
1 dose PO DAILY
N75-rpafs acid-B6-soy zhang ext
3,000 mcg PO DAILY Qty: 0 0RF
Changed
allopurinol 100 MG tablet
300 mg PO DAILY Qty: 0 0RF
milk thistle 150 mg Capsule
150 mg PO DAILY Qty: 1 0RF
furosemide [Lasix] 80 mg tablet
40 mg PO BID Qty: 0 0RF
Discharge Orders:
Discharge Patient (As Directed); Ordered 09/18/24
Ordered By: Carri Sherwood
Care Plan Goals
Care Plan Goals:
Problem: Readiness for enhanced knowledge related to diagnosis and treatment plan
Goal: Understand your diagnosis and treatment plan needs, including medications if applicable.
Instructions: Know your diagnosis, underlying causes and treatment plan options, including medications if applicable. Consult with your health care team to learn about your diagnosis and treatment plan, including medications if applicable.
Discharge Date and Time
Print Language: CHILEAN
[2024-09-18 11:21] VITALS: BP 103/80
[2024-09-18 11:22] VITALS: BMI 31.4
[2024-09-18 11:46] VITALS: BP 109/78
[2024-09-18 11:52] VITALS: BP 117/86
[2024-09-18 11:58] VITALS: BP 103/68; BP 109/68; PULSE 74; O2SAT 92; O2SAT 99
--- NOTE | 2024-09-18 12:20 | CM ---
CM following for DC planning needs.
Met w/ patient at bedside. Friend also present.
We reviewed DC plan for home w/ CT Transitional Care RN. Pt. has no questions or concerns at this time.
Plan-home w/ CT RN
--- NOTE | 2024-09-18 14:19 | W.PN.CD ---
Today's Communication / Plan
-
discharge with routine post-TAVR follow up
Impression / Plan
-
74 year old man with vdfxx-vc-bqyjkuf, combined systolic/diastolic CHF, AF/Aflutter with prior ablation, CAD s/p PCI to RCA 2018, who is POD 1 s/p TF TAVR (Collins/Mel, 26 Power 3 Ultra Resilia with 2 additional ccs volume). New LBBB noted post
deployment (has pacemaker). Mean gradient 6 mmHg in lab and 7 mmHg today. Received diuresis post op. This morning doing well, ambulated without symptoms. Groins are c/d/i. Tele Afib w/ demand V-pacing. Labs notable for Hb 14.7, Cr 0.7, Plt 98 (from
157). CXR clear. TTE with gradients above, normal EF.
Plan
--> routine post TAVR care
--> repeat CBC in 1 week for platelet count
--> cont. home meds including PO diuresis with lasix 40 PO BID
--> TTE in 1 month
Physical Exam
Vital Signs/Labs
Vital Signs
Temp Pulse Resp BP Pulse Ox
36.6 C 77 18 117/86 96
09/18/24 11:22 09/18/24 12:45 09/18/24 11:22 09/18/24 11:52 09/18/24 11:45
09/17/24 09/18/24 09/19/24
06:59 06:59 06:59
Actual Weight 101.5 kg 102.1 kg
09/18/24 03:18
09/18/24 03:18
PT 16.1 Sec (11.4-14.6) H 09/09/24 12:13
INR 1.23 09/09/24 12:13
APTT 32.1 Sec (23.4-35.0) 09/09/24 12:13
09/09/24
12:13
Gaq-S-Jdavovcsnss Pept 1939
Physical Exam
Constitutional: No acute distress
Cardiovascular: Rhythm/rate is irregular
Respiratory: Respiratory effort normal
Neuro/Psych: AO x 3
Data Reviewed
-
Date of Service: September 18, 2024
Medical Decision Making: Reviewed Test Results
EKG: Tracing Personally Visualized and interpreted
Echo: Tracing Personally Visualized and interpreted
X-Ray/CT/US/MRI/NUC/PET: Image Personally Visualized and interpreted
Labs: Labs Reviewed by me
== END 2024-09-18 14:06 | disposition home or self-care (01) | DRG 266 ==
LOC: IVU 05:36
PROVIDERS: Physician Assistant Medical; ADMITTING PHYSICIAN Thoracic Surgery (Cardiothoracic Vascular Surgery); CONSULT PHYSICIAN Student in an Organized Health Care Education/Training Program; FAMILY PHYSICIAN Family Medicine
PROC: 02RF38Z Replacement of Aortic Valve with Zooplastic Tissue, Percutaneous Approach (ICD-10-PCS; 2024-09-17)
DX: I08.3 Combined rheumatic disorders of mitral, aortic and tricuspid valves (principal); Z00.6 Encounter for examination for normal comparison and control in clinical research program; I50.43 Acute on chronic combined systolic (congestive) and diastolic (congestive) heart failure; I48.92 Unspecified atrial flutter; I48.91 Unspecified atrial fibrillation; M10.00 Idiopathic gout, unspecified site; I44.7 Left bundle-branch block, unspecified; E78.5 Hyperlipidemia, unspecified; R35.0 Frequency of micturition; E66.811 Obesity, class 1; I25.10 Atherosclerotic heart disease of native coronary artery without angina pectoris; G62.9 Polyneuropathy, unspecified; Z68.31 Body mass index [BMI] 31.0-31.9, adult; I25.2 Old myocardial infarction; Z95.5 Presence of coronary angioplasty implant and graft; Z95.0 Presence of cardiac pacemaker; Z79.01 Long term (current) use of anticoagulants
CPT/HCPCS: 93308; 33361; 36415; 71045; 71046; 80048; 80053; 81003; 81015; 82248; 83036; 83880; 85025; 85027; 85347; 85610; 85730; 86850; 86900; 86901; 87070; 93005; 93321; 93325; C1760; C1769; C1894; Q9967

== ENCOUNTER 2024-10-15 11:10 | Outpatient (RCR) | payer MEDICARE, OTHER, SELFPAY | END 2024-10-15 23:59 | disposition home or self-care (01) | LOC: CRHB 11:10 | PROVIDERS: ATTENDING PHYSICIAN Internal Medicine Cardiovascular Disease | DX: Z95.4 Presence of other heart-valve replacement (principal) | CPT/HCPCS: G0422; G0423 ==

== ENCOUNTER 2024-10-19 09:54 | Emergency (ER) | payer MEDICARE, OTHER, SELFPAY ==
[2024-10-19 10:04] VITALS: BP 156/97
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
[2024-10-19] MEDS: ADACEL 0.5 ML IM (11:57)
== END 2024-10-19 12:04 | disposition home or self-care (01) ==
LOC: EMR 09:54
PROVIDERS: EMERGENCY PHYSICIAN Emergency Medicine
DX: S16.1XXA Strain of muscle, fascia and tendon at neck level, initial encounter (principal); S50.11XA Contusion of right forearm, initial encounter; S80.812A Abrasion, left lower leg, initial encounter; Y04.8XXA Assault by other bodily force, initial encounter; I10 Essential (primary) hypertension; I25.2 Old myocardial infarction; F17.200 Nicotine dependence, unspecified, uncomplicated; I48.91 Unspecified atrial fibrillation; Z79.01 Long term (current) use of anticoagulants; Z23 Encounter for immunization
CPT/HCPCS: 90471; 99284; 70450; 72125; 73502; 73590; 90715

== ENCOUNTER → 2024-11-05 13:55 | Outpatient (REF) | payer MEDICARE, OTHER, SELFPAY | LOC: HWRCS 13:55 | PROVIDERS: ATTENDING PHYSICIAN Internal Medicine Cardiovascular Disease | DX: I35.0 Nonrheumatic aortic (valve) stenosis (principal) | CPT/HCPCS: 93306 ==